=== PATIENT | male | born 1995 | race Caucasian/White ===

== ENCOUNTER → 2020-01-01 | Emergency (ER) | payer OTHER | END | disposition left against medical advice (07) | LOC: M ED | DX: Z53.21 Procedure and treatment not carried out due to patient leaving prior to being seen by health care provider (principal) ==

== ENCOUNTER → 2020-01-02 | Emergency (ER) | payer OTHER | END | disposition home or self-care (01) | LOC: M ED 10:55 | DX: S46.212A Strain of muscle, fascia and tendon of other parts of biceps, left arm, initial encounter (principal); X50.0XXA Overexertion from strenuous movement or load, initial encounter; Y92.019 Unspecified place in single-family (private) house as the place of occurrence of the external cause ==

== ENCOUNTER 2020-01-25 11:54 | Day surgery (SDC) | payer OTHER ==
[~2020-01-25] VITALS: Ht 177.8 cm; Wt 90.7 kg
[2020-01-25] MEDS ORDERED: MIDAZOLAM INJ 2MG/2ML VIAL (J2250 PER 1MG) As Ordered ONE (12:07)
[2020-01-25] MEDS ORDERED: fentaNYL 100 MCG/2 ML INJECTION (J3010) As Ordered ONE ×2 (12:08→14:47)
[2020-01-25] MEDS ORDERED: dexameTHASONE 4 MG/ML 1ML VIAL (J1100 PER 1MG) As Ordered ONE (12:08)
[2020-01-25] MEDS ORDERED: ONDANSETRON 4MG/2ML VIAL As Ordered ONE (12:08)
[2020-01-25] MEDS ORDERED: propofoL 200 MG/20 ML VIAL As Ordered ONE (12:08)
[2020-01-25] MEDS ORDERED: LIDOCAINE 2% 100MG/5ML SDV (FOR ANES.) As Ordered ONE (12:08)
[2020-01-25] MEDS ORDERED: ceFAZolin 2 GM/D5W 50 ML IV BAG (J0690 PER 500MG) As Ordered ONE (12:26)
[2020-01-25] MEDS ORDERED: ceFAZolin 1GM VIAL (J0690 PER 500MG) As Ordered ONE (13:34)
[2020-01-25] MEDS ORDERED: KETAMINE HCL 200 MG/20 ML VIAL As Ordered ONE (14:39)
[2020-01-25] MEDS ORDERED: ACETAMINOPHEN 1000MG 100ML IV BTL (OFIRMEV) (J0131 PER 10MG) As Ordered ONE (14:40)
[2020-01-25] MEDS ORDERED: KETOROLAC 60MG 2ML VIAL As Ordered ONE (14:44)
[2020-01-25] MEDS ORDERED: BUPIVACAINE/EPIN 0.5% 30 ML VIAL As Ordered ONE (14:47)
[2020-01-25] MEDS ORDERED: oxyCODONE 5MG TAB As Ordered ONE (16:12)
[2020-01-25] MEDS: oxyCODONE 5MG TAB PO PRN ×2 (16:15→16:53)
[2020-01-25] MEDS ORDERED: MORPHINE 2 MG/ML 1ML VIAL (J2270) As Ordered ONE (16:24)
[2020-01-25] MEDS ORDERED: MEPERIDINE INJ 25 MG/ML VIAL (J2175) IV PRN (16:45)
[2020-01-25] MEDS ORDERED: LR 1,000 ML IV SCH (16:45)
[2020-01-25] MEDS ORDERED: fentaNYL 100 MCG/2 ML INJECTION (J3010) IV PRN (16:45)
[2020-01-25] MEDS ORDERED: METOCLOPRAMIDE INJ 10MG/2ML VIAL (J2765 PER 1) IV PRN (16:45)
[2020-01-25] MEDS ORDERED: PERCOCET 5MG/325MG TAB PO PRN ×2 (16:45)
[2020-01-25] MEDS ORDERED: MORPHINE 2 MG/ML 1ML VIAL (J2270) IV PRN (16:45)
[2020-01-25] MEDS ORDERED: ONDANSETRON 4MG/2ML VIAL IV PRN (16:45)
[2020-01-25 17:25] VITALS: BP 138/94
--- NOTE | 2020-02-17 10:06 | RO ---
DATE OF OPERATION: 01/25/2020 PREOPERATIVE DIAGNOSIS: Left distal biceps tear, four weeks old. POSTOPERATIVE DIAGNOSIS: Left distal biceps tear, four weeks old. PROCEDURE: Primary left distal biceps repair. SURGEON: Paulette Dyer MD YARN DYER: Dayo Wells M.D. ANESTHESIA: General laryngeal mask anesthetic. COMPLICATIONS: None. 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 PROCEDURE: Antibiotics were given intravenously preoperatively and then a tourniquet of his left upper arm, non-inflated. Left upper extremity was carefully prepped and draped in the usual sterile fashion, elevated, and after appropriate timeout the Esmarch was utilized and then the tourniquet was inflated to 250 mmHg. A small transverse incision was made at 4 cm distal to the antecubital fossa flexion crease of the elbow. Very superficial dissection was done down to the deep fascia. Care taken to identify and protect the lateral brachial cutaneous nerve, and during the procedure we ended up actually retracting this medially. We found the zone of injury; however, it was difficult at first to find the tendon stump. Thus, at this point I did trace distally and followed the normal path of the biceps over the brachialis tendon and found the radial tuberosity. Indeed, the radial tuberosity was bare and there was some fibrous, synovial-type frond of tissue still remaining consistent with a complete rupture of the distal biceps tendon. Thus, at this point I was able to trace it more proximally following these fronds of synovium into the zone of injury that was just more superficial than our previous dissection, and we were able to find a significantly scarred down within and beneath the lacertus fibrosis. The stump of the tendon was then identified and held with a Jesus clamp. Then, I did some soft tissue releases, both on the anterior, and the posterior and mediolateral surfaces of the tendon to allow better mobilization. Eventually, we were able to get satisfactory enough mobilization that I felt a primary repair was possible instead of having to resort to semitendinous allograft supplementation. At this point, we then used the FiberLoop from the distal biceps button kit and passed the sutures through the tendon and loaded them on the button, and dunked it into the soft tissues for later passage. We then turned our attention to the radial tuberosity. We did not use Torey retractors but we used the [employer] retractors on either side of the radius right at the radial tuberosity which was quite readily identified. I made sure it was clear of soft tissues with a small Dennison elevator, and then used the spay- tipped guidewire to pass through the near cortex, and then mini C-arm fluoroscopic imaging confirmed that we were centered directly onto the radial tuberosity. I then drilled the spay-tip through the far cortex and then used the 8 mm reamer to ream just the near cortex. We copiously irrigated out and then we, at this point, loaded the biceps button onto the medical attendant and under direct visualization, was able to pass it through the far hole and flip the button, and then I pulled on both limbs of the sutures sequentially as the tendon actually dunked very nicely right down into the hole. It was quite a snug fit, and then it was secured by several alternating post- half hitches providing excellent, firm fixation. I felt that there was not enough room to pass the biceps screw at this point and thus, I elected to leave the fixation as is. Mucosa irrigated again and then noted, by exam, that he had actually full extension and when I was able to pronate and supinate the forearm quite readily. Thus, I did not think there it was under too much tension. I then released the tourniquet at this point, closed the deep subdermal tissues with interrupted 3-0 PDS suture and then a subcuticular 4-0 Monocryl. Mastisol and Steri-Strips were used in the skin covered by Adaptic and a dry, sterile, bulky dressing and a sling, and then he was awakened from general laryngeal mask anesthetic after having tolerated the procedure well, and then transferred to the recovery room in stable condition. There were no intraoperative complications. Dr. Dayo Wells was critical to the success of this difficult procedure by helping with appropriate soft tissue retraction, manipulating the arm and the hand as needed, helped to prepare the patient, helped with the C-arm during the procedure amongst many other tasks to allow me to perform the operation smoothly, efficiently and safely. It is also noteworthy that the lateral antebrachial cutaneous nerve was identified during the procedure and we carefully tried to retract it out of the way on the medial side of the wound. TRES
--- NOTE | 2020-02-22 09:36 | REP ---
LEFT ELBOW IMAGES CLINICAL: Left biceps repair. TECHNIQUE: Intraoperative fluoroscopic imaging using portable C-arm technique. FINDINGS: Multiple images of the elbow and proximal forearm demonstrate biceps repair. Total fluoroscopic time 7 seconds. IMPRESSION: Status post left biceps repair. MTDD
== END 2020-01-25 17:37 | disposition home or self-care (01) ==
LOC: M SDC 11:54
PROVIDERS: ATTEND Orthopaedic Surgery
DX: S46.212A Strain of muscle, fascia and tendon of other parts of biceps, left arm, initial encounter (principal); X50.0XXA Overexertion from strenuous movement or load, initial encounter; Y92.019 Unspecified place in single-family (private) house as the place of occurrence of the external cause; Y93.9 Activity, unspecified; Y99.9 Unspecified external cause status
CPT/HCPCS: 24342; 73080; 87486; 87581; 87633; 87798; C1713; J0131; J1100; J1885; J2250; J2270; J2405; J3010

== ENCOUNTER 2020-09-13 14:58 | Emergency (ER) | payer OTHER ==
[~2020-09-13] VITALS: Ht 177.8 cm; Wt 90.9 kg
[2020-09-13] MEDS ORDERED: METOCLOPRAMIDE INJ 10MG/2ML VIAL (J2765 PER 1) IV ONE (15:55)
[2020-09-13] MEDS ORDERED: NS 1,000 ML IV ONE (15:55)
[2020-09-13] MEDS ORDERED: KETOROLAC 30 MG/ML 1ML VIAL IV ONE (15:55)
[2020-09-13 16:50] LABS: BASO % 0.7 % (0.0-1.0); EOS # 0.1 10^3/uL (0.0-0.5); HEMATOCRIT 42.1 % (42.0-52.0); LYMPH % 21.7 % (24.0-44.0); MEAN CORPUSCULAR HEMOGLOBIN 29.8 pg (27.0-33.0); MEAN CORPUSCULAR HGB CONC 33.3 g/dl (32.0-36.5); MEAN CORPUSCULAR VOLUME 89.6 fl (80.0-96.0); MONO # 0.6 10^3/uL (0.0-0.8); MONO % 14.4 % (2.0-8.0); NEUTROPHILS # 2.7 10^3/uL (1.5-8.5); PLATELET COUNT, AUTOMATED 301 10^3/uL (150-450); WHITE BLOOD COUNT 4.4 10^3/uL (4.0-10.0)
[2020-09-13 17:09] LABS: AMPHETAMINES LEVEL URINE NEGATIVE (NEGATIVE); BARBITURATES URINE NEGATIVE (NEGATIVE); BENZODIAZEPINES URINE NEGATIVE (NEGATIVE); CANNABINOIDS URINE NEGATIVE (NEGATIVE); COCAINE METABOLITE URINE NEGATIVE (NEGATIVE); METHADONE URINE NEGATIVE (NEGATIVE); OPIATES URINE NEGATIVE (NEGATIVE); PHENCYCLIDINE URINE NEGATIVE (NEGATIVE)
[2020-09-13 17:16] LABS: RSV AMPLIFICATION NEGATIVE (NEGATIVE)
[2020-09-13 17:21] LABS: ALBUMIN 4.1 GM/DL (3.2-5.2); ALT/SGPT 26 U/L (12-78); BILIRUBIN,DIRECT < 0.1 MG/DL (0.0-0.2); BILIRUBIN,TOTAL 0.3 MG/DL (0.2-1.0); BLOOD UREA NITROGEN 13 MG/DL (7-18); CALCIUM LEVEL 9.8 MG/DL (8.5-10.1); CARBON DIOXIDE LEVEL 28 MEQ/L (21-32); CHLORIDE LEVEL 104 MEQ/L (98-107); CREATININE FOR GFR 0.96 MG/DL (0.70-1.30); ETHYL ALCOHOL (ETHANOL) < 0.003 % (0.000-0.010); GLOMERULAR FILTRATION RATE > 60.0 (>60); GLUCOSE, FASTING 80 MG/DL (70-100); POTASSIUM SERUM 4.3 MEQ/L (3.5-5.1); SALICYLATE LEVEL < 1.7 MG/DL (5.0-30.0); SODIUM LEVEL 139 MEQ/L (136-145); TOTAL PROTEIN 7.6 GM/DL (6.4-8.2)
[2020-09-13 17:22] LABS: ACETAMINOPHEN LEVEL < 2.0 UG/ML (10.0-30.0)
[2020-09-13 18:15] VITALS: BP 127/58
--- NOTE | 2020-09-13 19:40 | REPVR ---
PROCEDURE INFORMATION: Exam: CT Head Without Contrast Exam date and time: 09/13/2020 6:27 PM Age: 25 years old Clinical indication: Altered mental status/memory loss TECHNIQUE: Imaging protocol: Computed tomography of the head without contrast. Radiation optimization: All CT scans at this facility use at least one of these dose optimization techniques: automated exposure control; mA and/or kV adjustment per patient size (includes targeted exams where dose is matched to clinical indication); or iterative reconstruction. COMPARISON: No relevant prior studies available. FINDINGS: Brain: There is no evidence for an acute large vessel territorial infarct, intracranial hemorrhage, mass, mass effect, or herniation. The cortical gyration pattern, basal ganglia, thalami, brainstem, and cerebellum are normal in appearance. Cerebral ventricles: No ventriculomegaly. Bones/joints: Unremarkable. No acute fracture. Paranasal sinuses: Visualized sinuses are unremarkable. No fluid levels. Mastoid air cells: Visualized mastoid air cells are well-aerated. Soft tissues: Unremarkable. IMPRESSION: No acute intracranial abnormality. Electronically signed by: Km Maurer On 09/13/2020 19:40:29 PM
[2020-09-13] MEDS ORDERED: METAL LOCK LOOP XX ONE (19:47)
== END 2020-09-13 20:13 | disposition home or self-care (01) ==
LOC: EDBD 14:58 → M ED 14:58
DX: U07.1 COVID-19 (principal)
CPT/HCPCS: 70450; 80048; 80076; 80143; 80307; 82077; 82140; 84443; 85025; 87631; 93041; 94760; 96361; 96374; 96375; 99285; J1885; J2765

== ENCOUNTER → 2025-02-03 | Outpatient (CLI) | payer OTHER | LOC: M SLEEP 20:00 | PROVIDERS: ATTEND Nurse Practitioner Family | DX: G47.33 Obstructive sleep apnea (adult) (pediatric) (principal) ==